=== PATIENT | male | born 1960 | race Caucasian/White ===

== ENCOUNTER 2016-08-25 16:56 | Emergency (ER) | payer BC ==
[~2016-08-25] VITALS: Ht 182.9 cm; Wt 88.8 kg
[2016-08-25 17:01] VITALS: TEMP 37; Ht 182.9 cm; Wt 88.8 kg
--- NOTE | 2016-08-25 17:43 | EMERGENCY ROOM VISIT NOTE ---
History Report prepared by Gisela: Alex Montoya Under the Supervision of: Dr. Branden Caldera M.D. First contact with patient: 17:12 Chief Complaint: CARDIAC ASSESSMENT Stated Complaint: TIGHTNESS IN CHEST (LEFT SIDE), TIRED Nursing Triage Summary: Patient c/o left sided chest tightness since the weekend, began Tuesday with sharp pains that didn't last long. Denies injury or muscle strain. Associated being more tired than usual. Denies SOB, diaphoresis History of Present Illness The patient is a 55 year old male who presents to the Emergency Room with complaints of persistent chest tightness starting 4 days ago. 5 days ago, the patient started having intermittent left sided chest pain. The pain occurred four times and lasted for a few seconds each time. 4 days ago, he started having persistent chest tightness. He does not notice it when he is preoccupied but it becomes more severe when he is inactive or sitting down. He feels as though he has a tachycardic rate. The patient denies any recent strenuous activities, injuries, or travels. He denies any worsening symptoms with breathing or movement. He walked on the treadmill a few times in the past few days without any worsening symptoms. He has been fatigued more than normal for the past 2 days. He denies lightheadedness, numbness, weakness, pain in jaw/neck /back, fevers, chills, cough, shortness of breathing, belching, burping, nausea , vomiting, abdominal pain, black/bloody stools, or any other complaints. He has had an increased stress at work in the past few weeks. He denies any history of smoking, or alcohol use. He has a history of high cholesterol, heart burn, and esophageal stricture. He denies a history of diabetes or hypertension. Source of History: patient Onset: 4 days ago Position: chest (left) Quality: other (tightness) Timing: other (persistent) Associated Symptoms: + fatigue, No SOB, No abdominal pain, No chills, No cough, No fevers, No nausea, No numbness, No vomiting, No weakness Review of Systems See HPI for pertinent positives & negatives. A total of 10 systems reviewed and were otherwise negative. Past Medical & Surgical Medical Problems: (1) Esophageal stricture (2) Heart burn (3) High cholesterol Old medical records were reviewed. Nurse's notes were reviewed and I agree with. Family History Patient reports no known family medical history. Social History Smoking Status: Never Smoker Alcohol Use: none Marital Status: Occupation Status: employed Current/Historical Medications Scheduled Atorvastatin (Lipitor), 10 MG PO HS Fish Oil ([place]-3), 1 CAP PO QPM Multivitamin (Multivitamin), 1 TAB PO QAM Omeprazole (Prilosec), 20 MG PO Q2D Scheduled PRN Loratadine (Claritin), 10 MG PO DAILY PRN for SPRING Allergies Coded Allergies: No Known Allergies (Unverified , 08/25/16) Physical Exam Vital Signs Date Time Temp Pulse Resp B/P Pulse Ox O2 Delivery O2 Flow Rate FiO2 08/25/16 19:12 70 18 124/83 96 Room Air 08/25/16 17:27 79 08/25/16 17:04 94 Room Air 08/25/16 17:01 37.0 83 17 161/99 94 Room Air Physical Exam General: Non-ill appearing, middle aged male, in no acute distress. HEENT: Normal cephalic atraumatic. Pupils are equal round and reactive to light. Extraocular movements are intact. Oropharynx is pink with moist mucous membranes. No swelling of the mouth lips or tongue. Neck: Supple with a midline trachea. No meningeal signs or stiffness, no JVD or bruits. No Stridor. Chest: Clear to auscultation bilaterally. No wheezes or rhonchi. No increased work of breathing. Heart: regular rate and rhythm. Abdomen: Soft nontender, nondistended without rebound guarding or rigidity. Extremities: No cyanosis clubbing or edema. No calf tenderness or assymetry Spine/Back. Non tender to palpation. No CVA tenderness. Large lipoma on the left flank, nontender. Skin: Good turgor without rashes. Neurologic exam: Cranial nerves two through 12 are intact. Motor and sensation are intact and symmetrical throughout. Medical Decision & Procedures ER Provider Diagnostic Interpretation: X-ray results as stated below per interpretation by me and the radiologist: CHEST ONE VIEW PORTABLE CLINICAL HISTORY: CHEST PAIN pain COMPARISON STUDY: No previous studies for comparison. FINDINGS: The bones soft tissues and hemidiaphragms are normal. The cardiomediastinal silhouette is normal. The lungs are clear. The pulmonary vasculature is normal. IMPRESSION: Negative chest. Electronically signed by: Yogesh Moraes M.D. 08/25/2016 5:51 PM Laboratory Results 08/25/16 17:30 Red Blood Count 5.29, Mean Corpuscular Volume 86.4, Mean Corpuscular Hemoglobin 30.8, Mean Corpuscular Hemoglobin Concent 35.7, Mean Platelet Volume 9.4, Neutrophils (%) (Auto) 66.1, Lymphocytes (%) (Auto) 21.5, Monocytes (%) (Auto) 9.6, Eosinophils (%) (Auto) 2.0, Basophils (%) (Auto) 0.3, Neutrophils # (Auto) 5.00, Lymphocytes # (Auto) 1.63, Monocytes # (Auto) 0.73, Eosinophils # (Auto) 0.15, Basophils # (Auto) 0.02 08/25/16 17:30 Test 08/25/16 17:30 White Blood Count 7.57 K/uL (4.8-10.8) Red Blood Count 5.29 M/uL (4.7-6.1) Hemoglobin 16.3 g/dL (14.0-18.0) Hematocrit 45.7 % (42-52) Mean Corpuscular Volume 86.4 fL (80-100) Mean Corpuscular Hemoglobin 30.8 pg (25-34) Mean Corpuscular Hemoglobin Concent 35.7 g/dl (32-36) Platelet Count 207 K/uL (130-400) Mean Platelet Volume 9.4 fL (7.4-10.4) Neutrophils (%) (Auto) 66.1 % Lymphocytes (%) (Auto) 21.5 % Monocytes (%) (Auto) 9.6 % Eosinophils (%) (Auto) 2.0 % Basophils (%) (Auto) 0.3 % Neutrophils # (Auto) 5.00 K/uL (1.4-6.5) Lymphocytes # (Auto) 1.63 K/uL (1.2-3.4) Monocytes # (Auto) 0.73 K/uL (0.11-0.59) Eosinophils # (Auto) 0.15 K/uL (0-0.5) Basophils # (Auto) 0.02 K/uL (0-0.2) RDW Standard Deviation 40.8 fL (36.4-46.3) RDW Coefficient of Variation 12.9 % (11.5-14.5) Immature Granulocyte % (Auto) 0.5 % Immature Granulocyte # (Auto) 0.04 K/uL (0.00-0.02) D-Dimer < 190 ug/L FEU (0-500) Anion Gap 9.0 mmol/L (3-11) Est Creatinine Clear Calc Drug Dose 74.6 ml/min Estimated GFR () 77.3 Estimated GFR (Non- 66.7 BUN/Creatinine Ratio 12.7 (10-20) Calcium Level 8.9 mg/dl (8.5-10.1) Total Bilirubin 0.4 mg/dl (0.2-1) Direct Bilirubin < 0.1 mg/dl (0-0.2) Aspartate Amino Transf (AST/SGOT) 17 U/L (15-37) Alanine Aminotransferase (ALT/SGPT) 38 U/L (12-78) Alkaline Phosphatase 93 U/L (45-117) Troponin I < 0.015 ng/ml (0-0.045) Total Protein 7.0 gm/dl (6.4-8.2) Albumin 4.0 gm/dl (3.4-5.0) Lipase 200 U/L (73-393) Thyroid Stimulating Hormone (TSH) 2.400 uIu/ml (0.300-4.500) Laboratory studies as stated above per my review. ECG Indication: chest pain Rate (beats per minute): 76 Rhythm: normal sinus Findings: other (Right ventricular conduction delay; no definite ischemic changes) Comparison ECG Date: no prior available Change: Repeat EKG showed normal sinus rhythm, 76 beats per minute, right ventricular conduction delay, no change from first EKG. ED Course 171: Past medical records reviewed. The patient was evaluated in room B08, and a complete history and physical examination were performed. 181: I reevaluated the patient who is resting comfortably. 185: Upon reevaluation, I discussed the results and treatment plan with the patient. He verbalized agreement of the treatment plan. The patient was discharged home. Medical Decision Differential diagnosis includes but is not limited to acute coronary syndrome, arrhythmia, GERD, anxiety, musculoskeletal, electrolyte or metabolic abnormality. This patient comes in as described above. He is having some vague chest discomfort. It's been persistent for several days consistently and says it feels better if he does something and is preoccupied. IV access was established , EKG was obtained. Multiple blood testing was obtained. EKG does not suggest acute coronary syndrome or significant arrhythmia. There is no old EKG for comparison, I did a second EKG while he was here in the ER. He has no change compared to the first. His troponin is negative as is CK-MB despite having multiple days of pain makes this unlikely cardiac. His d-dimer is within normal limits and in a low pretest probability study makes PE highly unlikely. He has no electrolyte or metabolic abnormalities. This may be GI or muscular skeletal or anxiety. At this point, I do not find any evidence to suggest acute cardiac event or PE. The patient strongly desires to go home and I think this is reasonable. He should follow-up with his doctor 1-2 days recheck. return to ER for recurrence or worsening symptoms, shortness of breath, any new problems orconcerns. He is happy with plan and discharged to home. Impression Primary Impression: Precordial chest pain Scribe Attestation The scribe's documentation has been prepared under my direction and personally reviewed by me in its entirety. I confirm that the note above accurately reflects all work, treatment, procedures, and medical decision making performed by me. Departure Information Dispostion Home / Self-Care Referrals No Doctor, Assigned (PCP) Forms IMPORTANT VISIT INFORMATION Patient Instructions A Signature Page, My [employer] Additional Instructions Rest Drink plenty of fluids Return if: Worsening symptoms, recurrence of symptoms, shortness of breath, any new problems or concerns Take an aspirin a day 81 mg enteric-coated Follow-up with your doctor in 1-2 days for recheck.
[2016-08-25 17:46] LABS: BASO % 0.3 %; BASO ABS # 0.02 K/uL (0-0.2); COMPLETE YES; HEMATOCRIT 45.7 % (42-52); IG% 0.5 %; LYMPH % 21.5 %; LYMPH ABS # 1.63 K/uL (1.2-3.4); MEAN CELL VOLUME 86.4 fL (80-100); MEAN CORPUSCULAR HEMOGLOBIN 30.8 pg (25-34); MEAN CORPUSCULAR HGB CONC 35.7 g/dl (32-36); MEAN PLATELET VOLUME 9.4 fL (7.4-10.4); MONO % 9.6 %; NEUT % 66.1 %; PLATELET COUNT 207 K/uL (130-400); RED BLOOD COUNT 5.29 M/uL (4.7-6.1); WHITE BLOOD COUNT 7.57 K/uL (4.8-10.8)
[2016-08-25] MEDS ORDERED: MULT-506 PO (17:51)
[2016-08-25] MEDS ORDERED: OMEG10007 PO (17:51)
[2016-08-25] MEDS ORDERED: CLR10 PO (17:51)
[2016-08-25] MEDS ORDERED: PRLSR20 PO (17:51)
[2016-08-25] MEDS ORDERED: ATOR10TA82 PO (17:51)
--- NOTE | 2016-08-25 17:53 | DIAGNOSTIC IMAGING REPORT ---
CHEST ONE VIEW PORTABLE CLINICAL HISTORY: CHEST PAIN pain COMPARISON STUDY: No previous studies for comparison. FINDINGS: The bones soft tissues and hemidiaphragms are normal. The cardiomediastinal silhouette is normal. The lungs are clear. The pulmonary vasculature is normal. IMPRESSION: Negative chest. Electronically signed by: Yogesh Moraes M.D. 08/25/2016 5:51 PM
[2016-08-25 18:02] LABS: BLOOD UREA NITROGEN 15 mg/dl (7-18); BUN/CREATININE RATIO 12.7 (10-20); CALCIUM 8.9 mg/dl (8.5-10.1); CARBON DIOXIDE 27 mmol/L (21-32); CHLORIDE 106 mmol/L (98-107); GLUCOSE 109 mg/dl (70-99); POTASSIUM 3.8 mmol/L (3.5-5.1); SODIUM 142 mmol/L (136-145)
[2016-08-25 18:13] LABS: ALKALINE PHOSPHATASE 93 U/L (45-117); ALT/SGPT 38 U/L (12-78); AST/SGOT 17 U/L (15-37)
[2016-08-25 19:12] VITALS: BP 124/83; PULSE 70; O2SAT 96
== END 2016-08-25 19:20 | disposition home or self-care (01) ==
LOC: C.EDB 16:57
DX: R07.2 Precordial pain (principal); E78.00 Pure hypercholesterolemia, unspecified; R12 Heartburn; Z79.899 Other long term (current) drug therapy

== ENCOUNTER → 2018-03-29 | Outpatient (CLI) | payer BC ==
[~2018-03-29] MED LIST: ATOR10TA82 PO; CLR10 PO; MULT-506 PO; OMEG10007 PO; PRLSR20 PO
[2018-03-29 10:06] LABS: ALBUMIN 3.8 gm/dl (3.4-5.0); ALKALINE PHOSPHATASE 91 U/L (45-117); ALT/SGPT 29 U/L (12-78); AST/SGOT 15 U/L (15-37); BLOOD UREA NITROGEN 20 mg/dl (7-18); CALCIUM 8.5 mg/dl (8.5-10.1); CARBON DIOXIDE 27 mmol/L (21-32); CHOLESTEROL 137 mg/dl (0-200); CREATININE 0.94 mg/dl (0.60-1.40); GLUCOSE 95 mg/dl (70-99); LDL CHOLESTEROL CALCULATED 63 mg/dl; POTASSIUM 3.8 mmol/L (3.5-5.1); SODIUM 139 mmol/L (136-145); TOTAL PROTEIN 6.9 gm/dl (6.4-8.2)
== END | disposition home or self-care (01) ==
LOC: C.LAB1850 08:01
PROVIDERS: ATTEND Internal Medicine
DX: Z00.00 Encounter for general adult medical examination without abnormal findings (principal); E78.5 Hyperlipidemia, unspecified; E03.9 Hypothyroidism, unspecified